=== PATIENT | female | born 1950 | race Caucasian/White ===

== ENCOUNTER 2017-06-17 07:28 | Emergency (ER) | payer MEDICARE ==
[2017-06-17] MEDS ORDERED: Sodium Chloride 0.9% 1000 ML 1,000 ML IV STA (07:53)
--- NOTE | 2017-06-17 08:00 | ERPHSYRPT ---
- History of Present Illness Time Seen by Provider: 06/17/17 07:47 Source: patient Exam Limitations: no limitations Patient Subjective Stated Complaint: here from home via ambulance for weakness and dizziness at home. pt is poor historian. states dizziness when moves, has not been feeling well for a few days and is taking predinsone. aches all over and is naueasted Triage Nursing Assessment: pt alert, confused to time and events, resp easy, chest clear, abd soft, skin w/d pink, Physician History: Patient brought by ambulance with complaint of dizzy and confused for several days , positive fever no vomiting, cough cheat pain or urinary symptoms, Patient placed on steroids by her family doctor several days ago. Timing/Duration: day(s) (3-4 days) Severity: moderate Modifying Factors: Improves With: nothing Associated Symptoms: fever, weakness, No nausea, No vomiting, No abdominal pain , No shortness of breath, No heartburn, No diaphoresis, No cough, No chills, No chest pain, No headaches, No loss of appetite, No malaise, No rash, No syncope, No seizure Allergies/Adverse Reactions: diazepam [From Valium] Allergy (Verified 06/17/17 07:37) PARANOIA Home Medications: Estrogens,Conjugated [Premarin] 0.625 mg PO DAILY 08/05/12 [History] Levothyroxine Sodium 100 Mcg [Synthroid 100 Mcg] 100 mcg PO DAILY 08/05/12 [History] Meloxicam 15 mg PO DAILY 08/05/12 [History] Risperidone 1 mg [Risperdal 1 MG] 1.5 mg PO DAILY 08/05/12 [History] Valsartan 80 mg [Diovan 80 mg] 80 mg PO DAILY 08/05/12 [History] Vicodin 5-300 mg Tablet 1 tablet PO TID 08/05/12 [History] Xanax 1 mg PO QID 08/05/12 [History] Zoloft 200 mg PO BID 08/05/12 [History] Hctz/Triamteren 37.5 mg/25 mg* [Maxzide-25MG Tablet] 1 tab PO DAILY 03/29/13 [History] Nebivolol HCl 5 MG [Bystolic 5 MG] 5 mg PO DAILY 03/29/13 [History] Atorvastatin Calcium [Atorvastatin Calcium] 06/17/17 [History] Buspirone HCl [Buspirone HCl] 15 mg DAILY 06/17/17 [History] Clonidine HCl 0.1 mg PO TID PRN 06/17/17 [History] Fluticasone Propionate [Flonase NASAL] 1 spray DAILY 06/17/17 [History] Levothyroxine Sodium [Levothyroxine Sodium] 100 mcg DAILY 06/17/17 [History] Omeprazole [Omeprazole] 40 mg DAILY 06/17/17 [History] Potassium Chloride [Potassium Chloride] 10 meq DAILY 06/17/17 [History] Prednisone 20 mg [Deltasone 20 mg] 20 mg DAILY 06/17/17 [History] Risperidone [Risperidone] 3 mg DAILY 06/17/17 [History] Sertraline HCl [Sertraline HCl] 100 mg DAILY 06/17/17 [History] Zolpidem Tartrate [Zolpidem Tartrate] 10 mg DAILY 06/17/17 [History] Zolpidem Tartrate [Zolpidem Tartrate] 10 mg DAILY 06/17/17 [History] Hx Tetanus, Diphtheria Vaccination/Date Given: Yes Hx Influenza Vaccination/Date Given: Yes Hx Pneumococcal Vaccination/Date Given: Yes Immunizations Up to Date: Yes - Review of Systems Constitutional: Fever, No Chills, No Fatigue, No Lethargy, No Malaise, No Night Sweats, No Weakness, No Weight Loss Eyes: No Symptoms Ears, Nose, & Throat: No Symptoms, No Ear Pain, No Ear Discharge, No Hearing Changes, No Tinnitus, No Nose Pain, No Nose Congestion, No Nose Discharge, No Sinus Drainage, No Epistaxis, No Mouth Pain, No Mouth Swelling, No Loose Teeth, No Throat Pain, No Throat Swelling, No Hoarse, No Painful Swallowing, No Snoring , No Stridor Respiratory: No Cough, No Dyspnea Cardiac: No Chest Pain, No Edema, No Syncope Abdominal/Gastrointestinal: No Abdominal Pain, No Nausea, No Vomiting, No Diarrhea Genitourinary Symptoms: No Dysuria Musculoskeletal: No Back Pain, No Neck Pain Skin: No Rash Neurological: Dizziness, No Focal Weakness, No Gait Changes, No Headache, No Irritability, No Lethargy, No Paralysis, No Parasthesia, No Seizure, No Sensory Changes, No Speech Changes, No Tics, No Tremors, No Vertigo Psychological: No Symptoms Endocrine: No Symptoms All Other Systems: Reviewed and Negative - Past Medical History Pertinent Past Medical History: Yes Neurological History: No Pertinent History ENT History: No Pertinent History Cardiac History: Hypertension Respiratory History: Bronchitis, COPD, Pneumonia Endocrine Medical History: Hypothyroidism Musculoskeletal History: No Pertinent History GI Medical History: GERD, Other History: No Pertinent History Psycho-Social History: Anxiety, Depression Female Reproductive Disorders: No Pertinent History - Past Surgical History Past Surgical History: Yes Neuro Surgical History: No Pertinent History Cardiac: No Pertinent History Respiratory: No Pertinent History Gastrointestinal: Other Musculoskeletal: Orthopedic Surgery Female Surgical History: Hysterectomy, Other Other Surgical History: GASTRIC BYPASS OOPHERECTOMY LEFT KNEE SCOPE - Social History Smoking Status: Never smoker Exposure to second hand smoke: No Drug Use: none Patient Lives Alone: No - Female History Hx Last Menstrual Period: post Hx Now: No - Nursing Vital Signs Nursing Vital Signs: Initial Vital Signs Temperature 97.2 F 06/17/17 07:29 Pulse Rate 76 06/17/17 07:29 Respiratory Rate 16 06/17/17 07:29 Blood Pressure 154/82 06/17/17 07:29 O2 Sat by Pulse Oximetry 96 06/17/17 07:29 Pain Scale Pain Intensity 5 - Physical Exam General Appearance: no apparent distress, alert Eye Exam: PERRL/EOMI, eyes nml inspection Ears, Nose, Throat Exam: normal ENT inspection Neck Exam: normal inspection, non-tender, supple, full range of motion Respiratory Exam: normal breath sounds, lungs clear, No respiratory distress Cardiovascular Exam: regular rate/rhythm, normal heart sounds, normal peripheral pulses Gastrointestinal/Abdomen Exam: soft, normal bowel sounds, No tenderness, No mass Back Exam: normal inspection, normal range of motion, No CVA tenderness, No vertebral tenderness Extremity Exam: normal inspection, normal range of motion, pelvis stable Neurologic Exam: alert, oriented x 3, cooperative, normal mood/affect, nml cerebellar function, nml station & gait, sensation nml, No motor deficits Skin Exam: normal color, warm, dry, No rash SpO2 Interpretation: normal (96%) SpO2: 96 Oxygen Delivery: Room Air - Course Nursing assessment & vital signs reviewed: Yes EKG Interpreted by Me: RATE (73 bpm), Sinus Rhythm, NORMAL AXIS, 1st degree AV Block, Other (normal sinus rhythm, 73 bpm 1st degree av block , no acute st ot t wave changes noted) - Radiology Exams Chest X-ray Interpretation: Interpreted by me (no acute disease process noted) - CT Exams Head CT Interpretation: Tele-radiologist Report (1. chronic subinsular chronic lacunar infarcts. 2. age appropriate supertentoral and infratentoral atrophy, 3. moderate chronic white matter microvascular ischemic disease, 4, no acute intracranial abnormality seen) Ordered Tests: Active Orders 24 hr Category Date Time Status Accucheck STAT Care 06/17/17 07:53 Active Ambulate Patient ROUTINE Care 06/17/17 07:53 Active Steward/Stewardess Second STAT Care 06/17/17 07:54 Active EKG-ER Only STAT Care 06/17/17 07:53 Active IV Insertion STAT Care 06/17/17 07:53 Active Orthostatic Vital Signs STAT Care 06/17/17 07:53 Active CHEST 1 VIEW (PORTABLE) Stat Exams 06/17/17 07:53 Taken HEAD WITHOUT CONTRAST [CT] Stat Exams 06/17/17 07:53 Taken BLOOD CULTURE Stat Lab 06/17/17 08:15 Received CBC W DIFF Stat Lab 06/17/17 08:11 Completed CMP Routine Lab 06/17/17 08:11 Completed CULTURE,URINE Stat Lab 06/17/17 08:00 Received ETHYL ALCOHOL Routine Lab 06/17/17 08:11 Completed Lactic Acid Stat Lab 06/17/17 07:53 Results Manual Differential NC Stat Lab 06/17/17 08:11 Completed TROPONIN Q3H Lab 06/17/17 08:11 Completed TROPONIN Q3H Lab 06/17/17 11:00 Ordered TROPONIN Q3H Lab 06/17/17 14:00 Ordered TROPONIN Q3H Lab 06/17/17 17:00 Ordered TROPONIN Q3H Lab 06/17/17 20:00 Ordered UA W/ MICROSCOPIC Stat Lab 06/17/17 08:00 Completed Urine Triage Profile Stat Lab 06/17/17 08:00 Completed Medication Summary Generic Name Dose Route Start Last Admin Trade Name Freq PRN Reason Stop Dose Admin Potassium Chloride 100 mls @ 50 mls/hr 06/17/17 09:15 06/17/17 09:27 Potassium Chloride 20 Meq In Water 100ml IV 06/17/17 13:14 50 mls/hr Q2H BIJU Administration Discontinued Medications Generic Name Dose Route Start Last Admin Trade Name Desean PRN Reason Stop Dose Admin Sodium Chloride 1,000 mls @ 999 mls/hr 06/17/17 07:53 06/17/17 08:19 Sodium Chloride 0.9% 1000 Ml IV 06/17/17 08:53 999 mls/hr .Q1H1M STA Administration Sodium Chloride Confirm 06/17/17 08:17 Sodium Chloride 0.9% 1000 Ml Administered 06/17/17 08:18 Dose 1,000 mls @ ud .ROUTE .STK-MED ONE Lab/Rad Data: Laboratory Result Diagrams 06/17/17 08:11 06/17/17 08:11 Laboratory Results 06/17/17 06/17/17 06/17/17 Range/Units 08:11 08:11 08:00 WBC 8.3 (4.0-10.5) K/mm3 RBC 4.24 (4.1-5.4) M/mm3 Hgb 13.0 (12.0-16.0) gm/dl Hct 35.1 (35-47) % MCV 82.8 (78-100) fl MCH 30.7 (26-32) pg MCHC 37.0 H (32-36) g/dl RDW 11.7 (11.5-14.0) % Plt Count 310 (150-450) K/mm3 MPV 8.9 (6-9.5) fl Sodium 108 L* (136-145) mEq/L Potassium 2.0 L* (3.5-5.1) mEq/L Chloride 73 L (98-107) mEq/L Carbon Dioxide 27.0 (21-32) mEq/L Anion Gap 9.1 (5-15) MEQ/L BUN 10 (9-20) mg/dL Creatinine 0.93 (0.55-1.30) mg/dl Estimated GFR > 60 ML/MIN Glucose 141 H (70-110) MG/DL Lactic Acid (0.4-2.0) Calcium 8.1 L (8.5-10.1) mg/dL Total Bilirubin 0.50 (0.2-1.0) mg/dL AST 29 (15-37) U/L ALT 39 (12-78) U/L Alkaline Phosphatase 48 (46-116) U/L Troponin I < 0.017 (0.000-0.056) ng/ml Serum Total Protein 6.9 (6.4-8.2) gm/dL Albumin 3.7 (3.4-5.0) g/dL Ur Collection Type Urine Color (YELLOW) Urine Appearance (CLEAR) Urine pH (5-6) Ur Specific [place] (1.005-1.025) Urine Protein (Negative) Urine Ketones (NEGATIVE) Urine Blood (0-5) Jonathan/ul Urine Nitrite (NEGATIVE) Urine Bilirubin (NEGATIVE) Urine Urobilinogen (0-1) mg/dL Ur Leukocyte Esterase (NEGATIVE) Urine Microscopic RBC (0-2) /HPF Ur Epithelial Cells (FEW) /HPF Urine Bacteria (NEGATIVE) /HPF Urine Culture Reflexed Urine Glucose (NEGATIVE) mg/dL Urine Opiates Level NEG. (NEGATIVE) Ur Methadone NEG. (NEGATIVE) Urine Barbiturates NEG. (NEGATIVE) Ur Phencyclidine (PCP) NEG. (NEGATIVE) Urine Amphetamine NEG. (NEGATIVE) U Benzodiazepine Level POS. (NEGATIVE) Urine Cocaine NEG. (NEGATIVE) Urine Marijuana (THC) NEG. (NEGATIVE) Ethyl Alcohol < 0.010 (0.00-0.01) % Specimen Received 06/17/17 06/17/17 Range/Units 08:00 07:53 WBC (4.0-10.5) K/mm3 RBC (4.1-5.4) M/mm3 Hgb (12.0-16.0) gm/dl Hct (35-47) % MCV (78-100) fl MCH (26-32) pg MCHC (32-36) g/dl RDW (11.5-14.0) % Plt Count (150-450) K/mm3 MPV (6-9.5) fl Sodium (136-145) mEq/L Potassium (3.5-5.1) mEq/L Chloride (98-107) mEq/L Carbon Dioxide (21-32) mEq/L Anion Gap (5-15) MEQ/L BUN (9-20) mg/dL Creatinine (0.55-1.30) mg/dl Estimated GFR ML/MIN Glucose (70-110) MG/DL Lactic Acid 2.2 H (0.4-2.0) Calcium (8.5-10.1) mg/dL Total Bilirubin (0.2-1.0) mg/dL AST (15-37) U/L ALT (12-78) U/L Alkaline Phosphatase (46-116) U/L Troponin I (0.000-0.056) ng/ml Serum Total Protein (6.4-8.2) gm/dL Albumin (3.4-5.0) g/dL Ur Collection Type CATH Urine Color YELLOW (YELLOW) Urine Appearance CLEAR (CLEAR) Urine pH 8.0 (5-6) Ur Specific [place] 1.010 (1.005-1.025) Urine Protein NEGATIVE (Negative) Urine Ketones NEGATIVE (NEGATIVE) Urine Blood 50 (0-5) Jonathan/ul Urine Nitrite NEGATIVE (NEGATIVE) Urine Bilirubin NEGATIVE (NEGATIVE) Urine Urobilinogen NORMAL (0-1) mg/dL Ur Leukocyte Esterase NEGATIVE (NEGATIVE) Urine Microscopic RBC 2-5 (0-2) /HPF Ur Epithelial Cells FEW (FEW) /HPF Urine Bacteria FEW (NEGATIVE) /HPF Urine Culture Reflexed Cancelled Urine Glucose TRACE (NEGATIVE) mg/dL Urine Opiates Level (NEGATIVE) Ur Methadone (NEGATIVE) Urine Barbiturates (NEGATIVE) Ur Phencyclidine (PCP) (NEGATIVE) Urine Amphetamine (NEGATIVE) U Benzodiazepine Level (NEGATIVE) Urine Cocaine (NEGATIVE) Urine Marijuana (THC) (NEGATIVE) Ethyl Alcohol (0.00-0.01) % Specimen Received 06/17/2017 0850 - Progress Progress: improved Progress Note: 06/17/17 10:09 Patient with severe hyponatremia, hypokalemia, recieving iv normal saline and iv potassium' case discussed with Peter Blanca and Dr Yu will transfer to [facility]. Patient is a patient of Dr Singleton. Family wants patient to go to [facility] - Departure Time of Disposition: 10:11 Departure Disposition: Transfer ([facility] Dr Blanca, Dr Yu) Clinical Impression: Confusion, Hypokalemia, Hyponatremia Condition: Fair Critical Care Time: No Referrals: JUSTINA SINGLETON [Primary Care Provider] -
[2017-06-17] MEDS ORDERED: Sodium Chloride 0.9% 1000 ML 1,000 ML ONE (08:17)
[2017-06-17 08:29] LABS: Lactic Acid 2.2 (0.4-2.0)
[2017-06-17 08:31] LABS: Mean Cell Volume 82.8 fl (78-100); Mean Corpuscular Hemoglobin 30.7 pg (26-32); Mean Platelet Volume 8.9 fl (6-9.5); Platelet Count 310 K/mm3 (150-450); Red Blood Count 4.24 M/mm3 (4.1-5.4); Red Cell Distribution Width 11.7 % (11.5-14.0); White Blood Count 8.3 K/mm3 (4.0-10.5)
[2017-06-17 08:55] LABS: ALBUMIN 3.7 g/dL (3.4-5.0); ALKALINE PHOSPHATASE 48 U/L (46-116); ANION GAP 9.1 MEQ/L (5-15); BLOOD UREA NITROGEN 10 mg/dL (9-20); CHLORIDE 73 mEq/L (98-107); ETHYL ALCOHOL < 0.010 % (0.00-0.01); Glucose 141 MG/DL (70-110); SGOT/AST 29 U/L (15-37); SGPT/ALT 39 U/L (12-78); Total Protein 6.9 gm/dL (6.4-8.2)
[2017-06-17 09:08] LABS: SODIUM 108 mEq/L (136-145); TROPONIN < 0.017 ng/ml (0.000-0.056)
[2017-06-17 09:12] LABS: Bilirubin NEGATIVE (NEGATIVE); Blood 50 Ery/ul (0-5); COMPLETE URINE MICROSCOPIC? YES; Collection Type CATH; Glucose TRACE mg/dL (NEGATIVE); Leukocyte Esterase NEGATIVE (NEGATIVE)
[2017-06-17 09:13] LABS: Bacteria FEW /HPF (NEGATIVE); Epithelial Cells FEW /HPF (FEW)
[2017-06-17] MEDS: POTASSIUM CHLORIDE 20 mEq IN WATER 100ML 100 ML IV SCH ×2 (09:27→11:23)
[2017-06-17] MEDS ORDERED: POTASSIUM CHLORIDE 20 mEq IN WATER 100ML 100 ML IV ONE (09:27)
[2017-06-17 10:11] LABS: Platelet Estimate NORMAL (NORMAL); Total Cells Counted 100
[2017-06-17 10:12] VITALS: O2SAT 96
[2017-06-17 10:55] VITALS: BP 178/46; PULSE 79
--- NOTE | 2017-06-17 20:25 | XRAY ---
Indication: Confusion and dizziness. Multiple contiguous axial images obtained through the head without contrast. Comparison: November 02, 2007. Age-appropriate global atrophy and mild periventricular degenerative micro-ischemia bilaterally. No acute intracranial hemorrhage, abnormal extra-axial fluid collection, or mass effect. Fourth ventricle is midline without hydrocephalus. Bony calvarium intact. Visualized paranasal sinuses and mastoid air cells are clear. Impression: Nonacute senile brain. Comment: Preliminary interpretation was made by [facility]. No critical discrepancy. CTDI 67.80
--- NOTE | 2017-06-17 20:29 | XRAY ---
Indication: Dizziness and confusion. Comparison: November 02, 2007. Portable chest remains hyperinflated and clear. Heart is not enlarged. Bony thorax intact again with mild osteopenia, degenerative changes, and scoliosis. Impression: Stable nonacute chest with chronic features.
== END 2017-06-17 11:29 | disposition short-term general hospital (02) ==
LOC: ED 07:28
DX: R41.0 Disorientation, unspecified (principal); E87.6 Hypokalemia; E87.1 Hypo-osmolality and hyponatremia; R42 Dizziness and giddiness; I10 Essential (primary) hypertension; E03.9 Hypothyroidism, unspecified
CPT/HCPCS: 93041; 96365; 96366; 99285; 82962; 96360; 93005; 87040; 81000; 36415; 80307; 85025; 80053; 84484; 87086; 71010; 70450; 83605; G0481; J3480

== ENCOUNTER 2017-07-29 07:11 | Emergency (ER) | payer MEDICARE ==
[2017-07-29 07:32] VITALS: O2SAT 97
[2017-07-29 08:10] VITALS: BP 130/98; PULSE 80
--- NOTE | 2017-07-29 08:13 | ERPHSYRPT ---
- History of Present Illness Time Seen by Provider: 07/29/17 07:34 Historian: patient Patient Subjective Stated Complaint: pt here for constipation off and on for over a month, pt co nausea. Triage Nursing Assessment: pt walked in, alert, resp easy, skin w/d/p, abd soft Physician History: CC: constipation Hx: 67 y/o patient of Dr Singleton. She reports constipation. Rectal pain from straining to stool. No back pain. No abd pain. Some trouble with urination. No fever or chills. She tried exlax 2 days ago without relief. No chest pain. No V/ D. She is not on pain medication- stopped it a long time ago. Denies acts or thoughts of self harm. She has been down since being admitted at [facility] last month for 4 days. Timing/Duration: day(s) (few) Allergies/Adverse Reactions: diazepam [From Valium] Allergy (Verified 07/29/17 07:38) PARANOIA Home Medications: Estrogens,Conjugated [Premarin] 0.625 mg PO DAILY 08/05/12 [History] Levothyroxine Sodium 100 Mcg [Synthroid 100 Mcg] 100 mcg PO DAILY 08/05/12 [History] Meloxicam 15 mg PO DAILY 08/05/12 [History] Risperidone 1 mg [Risperdal 1 MG] 1.5 mg PO DAILY 08/05/12 [History] Valsartan 80 mg [Diovan 80 mg] 80 mg PO DAILY 08/05/12 [History] Vicodin 5-300 mg Tablet 1 tablet PO TID 08/05/12 [History] Xanax 1 mg PO QID 08/05/12 [History] Zoloft 200 mg PO BID 08/05/12 [History] Hctz/Triamteren 37.5 mg/25 mg* [Maxzide-25MG Tablet] 1 tab PO DAILY 03/29/13 [History] Nebivolol HCl 5 MG [Bystolic 5 MG] 5 mg PO DAILY 03/29/13 [History] Atorvastatin Calcium [Atorvastatin Calcium] 10 mg DAILY 06/17/17 [History] Buspirone HCl [Buspirone HCl] 15 mg DAILY 06/17/17 [History] Clonidine HCl 0.1 mg PO TID PRN 06/17/17 [History] Fluticasone Propionate [Flonase NASAL] 1 spray DAILY 06/17/17 [History] Levothyroxine Sodium [Levothyroxine Sodium] 100 mcg DAILY 06/17/17 [History] Omeprazole [Omeprazole] 40 mg DAILY 06/17/17 [History] Potassium Chloride [Potassium Chloride] 10 meq DAILY 06/17/17 [History] Prednisone 20 mg [Deltasone 20 mg] 20 mg DAILY 06/17/17 [History] Risperidone [Risperidone] 3 mg DAILY 06/17/17 [History] Sertraline HCl [Sertraline HCl] 100 mg DAILY 06/17/17 [History] Zolpidem Tartrate [Zolpidem Tartrate] 10 mg DAILY 06/17/17 [History] Hx Tetanus, Diphtheria Vaccination/Date Given: Yes Hx Influenza Vaccination/Date Given: Yes Hx Pneumococcal Vaccination/Date Given: Yes Immunizations Up to Date: Yes - Review of Systems Constitutional: No Fever, No Chills Eyes: No Symptoms Ears, Nose, & Throat: No Symptoms Respiratory: No Cough Cardiac: No Chest Pain Abdominal/Gastrointestinal: Abdominal Pain, No Nausea, No Vomiting, No Diarrhea Genitourinary Symptoms: Hesitancy, No Dysuria Musculoskeletal: No Back Pain Skin: No Rash Neurological: No Headache All Other Systems: Reviewed and Negative - Past Medical History Pertinent Past Medical History: Yes Neurological History: No Pertinent History ENT History: No Pertinent History Cardiac History: Hypertension Respiratory History: Bronchitis, COPD, Pneumonia Endocrine Medical History: Hypothyroidism Musculoskeletal History: No Pertinent History GI Medical History: GERD, Other History: No Pertinent History Psycho-Social History: Anxiety, Depression Female Reproductive Disorders: No Pertinent History - Past Surgical History Past Surgical History: Yes Neuro Surgical History: No Pertinent History Cardiac: No Pertinent History Respiratory: No Pertinent History Gastrointestinal: Other Musculoskeletal: Orthopedic Surgery Female Surgical History: Hysterectomy, Other Other Surgical History: GASTRIC BYPASS OOPHERECTOMY LEFT KNEE SCOPE - Social History Smoking Status: Never smoker Exposure to second hand smoke: No Drug Use: none Patient Lives Alone: No - Female History Hx Last Menstrual Period: post Hx Now: No - Nursing Vital Signs Nursing Vital Signs: Initial Vital Signs Temperature 97.5 F 07/29/17 07:28 Pulse Rate 78 07/29/17 07:28 Respiratory Rate 20 07/29/17 07:28 Blood Pressure 147/86 07/29/17 07:28 O2 Sat by Pulse Oximetry 97 07/29/17 07:28 Pain Scale Pain Intensity 0 - Physical Exam General Appearance: alert, other (anxious) Eye Exam: PERRL/EOMI Ears, Nose, Throat Exam: normal ENT inspection, moist mucous membranes Neck Exam: normal inspection, non-tender, supple Respiratory Exam: normal breath sounds, lungs clear Cardiovascular Exam: regular rate/rhythm Gastrointestinal/Abdomen Exam: soft, No tenderness, No distention, No mass, No guarding Rectal Exam: normal exam, normal rectal tone, other (soft brown stool) Back Exam: normal inspection, normal range of motion Extremity Exam: normal inspection, normal range of motion Neurologic Exam: alert, oriented x 3, cad detailer II-XII nml as tested, nml station & gait, sensation nml, No motor deficits Skin Exam: normal color, warm, dry, No rash SpO2 Interpretation: normal SpO2: 97 Oxygen Delivery: Room Air - Course Nursing assessment & vital signs reviewed: Yes Ordered Tests: Active Orders 24 hr Category Date Time Status Clean Catch Urine Specimen STAT Care 07/29/17 08:07 Active CBC W DIFF Stat Lab 07/29/17 08:07 Ordered CMP Stat Lab 07/29/17 08:07 Completed UA W/RFX UR CULTURE Stat Lab 07/29/17 08:07 Ordered Lab/Rad Data: Laboratory Result Diagrams 07/29/17 08:07 Laboratory Results 07/29/17 Range/Units 08:07 Sodium 138 (136-145) mEq/L Potassium 4.2 (3.5-5.1) mEq/L Chloride 104 (98-107) mEq/L Carbon Dioxide 21.5 (21-32) mEq/L Anion Gap 16.2 H (5-15) MEQ/L BUN 10 (9-20) mg/dL Creatinine 1.60 H (0.55-1.30) mg/dl Estimated GFR 34 ML/MIN Glucose 106 (70-110) MG/DL Calcium 9.2 (8.5-10.1) mg/dL Total Bilirubin 0.20 (0.2-1.0) mg/dL AST 16 (15-37) U/L ALT 20 (12-78) U/L Alkaline Phosphatase 49 (46-116) U/L Serum Total Protein 6.7 (6.4-8.2) gm/dL Albumin 3.8 (3.4-5.0) g/dL - Progress Progress Note: 07/29/17 08:10 She walked out of the room before initial interview. She went back to room. Interviewed patient with DARYL Reveles. She has no suicidal thoughts. She states is at home peeling potatoes and she needs to go back home because he does not know she has the car. She agreed for examination which is benign. Advised abdominal xray and labs. She declines. Advised she try mag citrate and follow up with Dr Singleton. 07/29/17 08:14 Old chart reviewed. She had profound hyponatremia and hypokalemia Jun 17. Advised patient her Na needs checked here. 07/29/17 08:54 She agreed to stay for Na but has been out of the room a few times wanting to leave. Declined breakfast. Na 138. Creat 1.6. Will release at patient request. Advised increased po fluid. 07/29/17 08:58 CBC pending. She wants to leave. She is alert, oriented, anxious but denies self harm thoughts. Will release at pt request. Counseled pt/family regarding: diagnosis, need for follow-up - Departure Time of Disposition: 08:58 Departure Disposition: AMA Clinical Impression: Dehydration, hx of hyponatremia Constipation Qualifiers: Constipation type: unspecified constipation type Qualified Code(s): K59.00 - Constipation, unspecified Condition: Stable Critical Care Time: No Referrals: JUSTINA SINGLETON [Primary Care Provider] - Instructions: Constipation, Adult (DC) Additional Instructions: Try one bottle mag citrate. Follow up tomorrow with Dr Singleton. Return for problems or concerns. Prescriptions: Magnesium Citrate 296 ml [Citroma 296 ml] 300 ml PO UD #1 solution
[2017-07-29 08:50] LABS: ALBUMIN 3.8 g/dL (3.4-5.0); ANION GAP 16.2 MEQ/L (5-15); BILIRUBIN,TOTAL 0.2 mg/dL (0.2-1.0); Calcium 9.2 mg/dL (8.5-10.1); Carbon Dioxide 21.5 mEq/L (21-32); Creatinine 1 1.6 mg/dl (0.55-1.30); Potassium 4.2 mEq/L (3.5-5.1); Total Protein 6.7 gm/dL (6.4-8.2)
[2017-07-29 08:58] LABS: BASOPHIL % 0.1 % (0.0-0.4); Basophil (Absolute #) 0.01 (0-0.4); Eosinophil % 0.3 % (0.00-5.0); Eosinophil (Absolute #) 0.02 (0-0.5); Granulocyte Absolute (ANC) 5.65 (1.4-6.9); Hematocrit 39.1 % (35-47); Lymphocyte (Absolute #) 1.44 (1.0-4.6); Lymphocytes % 18.8 % (24.0-44.0); Mean Cell Volume 90.7 fl (78-100); Mean Corpuscular Hemoglobin 30.2 pg (26-32); Mean Corpuscular Hgb Concent. 33.2 g/dl (32-36); Monocyte (Absolute #) 0.52 (0.0-1.3); Monocytes % 6.8 % (0.0-12.0); Platelet Count 332 K/mm3 (150-450); Red Blood Count 4.31 M/mm3 (4.1-5.4); Red Cell Distribution Width 13.4 % (11.5-14.0); White Blood Count 7.6 K/mm3 (4.0-10.5)
== END 2017-07-29 09:04 | disposition left against medical advice (07) ==
LOC: ED 07:11
DX: E86.0 Dehydration (principal); K59.00 Constipation, unspecified
CPT/HCPCS: 36415; 80053; 85025; 99283